=== PATIENT | male | born 1995 | race Two or more races ===

== ENCOUNTER 2023-05-23 13:21 | Emergency (ER) | payer BC ==
[2023-05-23 13:36] VITALS: RESP 18; BMI 45.1
[2023-05-23] MEDS ORDERED: ALBUTEROL SO4 2.5/IPRATROPIUM 0.5 INH SOL 3 ML VIAL.NEB. NEB ONE (15:04)
[2023-05-23] MEDS ORDERED: IBUPROFEN 600 MG TABLET (FP) PO ONE (15:05)
[2023-05-23] MEDS ORDERED: ACETAMINOPHEN 500 MG TABLET (FP) ONE (15:05)
[2023-05-23] MEDS: IBUPROFEN 600 MG TABLET (FP) PO ONE (15:09)
[2023-05-23] MEDS: ACETAMINOPHEN 500 MG TABLET (FP) PO ONE (15:09)
[2023-05-23] MEDS: ALBUTEROL SO4 2.5/IPRATROPIUM 0.5 INH SOL 3 ML VIAL.NEB. NEB ONE (15:09)
[2023-05-23 15:16] LABS: THROAT:GRP A STREP DETECTED (NOTDETECTED)
[2023-05-23] MEDS ORDERED: AMOXICILLIN 250 MG CAPSULE ONE (16:42)
[2023-05-23] MEDS: AMOXICILLIN 500 MG CAPSULE (FP) PO ONE (16:45)
[2023-05-23 16:54] VITALS: BP 153/74; PULSE 78; TEMP 98.2
== END 2023-05-23 17:32 | disposition home or self-care (01) ==
LOC: JERFT 13:21
PROC: 3E0F7GC Introduction of Other Therapeutic Substance into Respiratory Tract, Via Natural or Artificial Opening (ICD-10-PCS; principal; 2023-05-23)
DX: R06.02 Shortness of breath (principal); R00.2 Palpitations; R11.0 Nausea; J02.0 Streptococcal pharyngitis; B97.4 Respiratory syncytial virus as the cause of diseases classified elsewhere; Z20.822 Contact with and (suspected) exposure to COVID-19
CPT/HCPCS: 0241U-QW; 71046-TC-FY; 87651; 93005; 93010; 99285-25